=== PATIENT | female | born 1970 | race Caucasian/White ===

== ENCOUNTER → 2018-11-14 | Outpatient (CLI) | payer SELFPAY ==
[~2018-11-14] MED LIST: AMIT10 PO; AZIT250 PO; CHOL10002 PO; CITA20 PO; CYCL10 PO; HYDGUAL120 PO; NAPR550 PO; NAPROSYN PRN; RANI150 PO; RXNAPNA550 PO; TRAM50 PO; Ultram50 MG PO
== END | disposition home or self-care (01) ==
LOC: LAB SHORT 15:00 → LAB EV 15:00
DX: N39.0 Urinary tract infection, site not specified (principal)
CPT/HCPCS: 87086

== ENCOUNTER → 2019-03-15 | Outpatient (CLI) | payer OTHER ==
[2019-03-18 05:08] LABS: CHLAMYDIA TRACHOMATIS, NAA Negative (Negative); NEISSERIA GONORRHOEAE, NAA Negative (Negative)
== END | disposition home or self-care (01) ==
LOC: LAB EV 14:56 → LAB SHORT 14:56
PROVIDERS: Physician Assistant
DX: R10.2 Pelvic and perineal pain (principal)
CPT/HCPCS: 87070; 87077; 87086; 87186; 87205; 87491; 87591

== ENCOUNTER 2019-07-07 08:05 | Day surgery (SDC) | payer OTHER ==
[~2019-07-07] VITALS: Ht 167.6 cm; Wt 82.1 kg
[~2019-07-07 08:05] MED LIST changes: +Aspirin EC81 MG PO; +FERSU300 PO; +Ventolin/Prove6.7 GM INH; +Vitamin D2000 UNIT PO
[2019-07-07] MEDS ORDERED: Nolvadex20 MG PO (08:33)
[2019-07-07] MEDS ORDERED: TURMERIC500 M2 PO (08:34)
[2019-07-07] MEDS ORDERED: GINGER ROOT550 MG PO (08:34)
== END 2019-07-07 12:24 | disposition home or self-care (01) ==
LOC: ORSCSDS 08:05
PROVIDERS: Orthopaedic Surgery
PROC: 0SBC4ZZ Excision of Right Knee Joint, Percutaneous Endoscopic Approach (ICD-10-PCS; principal; 2019-07-07 09:30)
DX: S83.241A Other tear of medial meniscus, current injury, right knee, initial encounter (principal); J45.909 Unspecified asthma, uncomplicated; Z87.891 Personal history of nicotine dependence; Z79.899 Other long term (current) drug therapy; Z79.82 Long term (current) use of aspirin
CPT/HCPCS: J0690; J1885; J2250; J2405; J2704; J3010; J7120

== ENCOUNTER 2019-07-19 14:14 | Emergency (ER) | payer OTHER ==
[~2019-07-19] VITALS: Ht 167.6 cm; Wt 82.0 kg
[~2019-07-19 14:14] MED LIST changes: +GINGER ROOT550 MG PO; +Nolvadex20 MG PO; +TURMERIC500 M2 PO
[2019-07-19] MEDS ORDERED: Ultram50 MG PO (15:55)
== END 2019-07-19 16:14 | disposition home or self-care (01) ==
LOC: ER 14:14
DX: M25.561 Pain in right knee (principal); Z88.6 Allergy status to analgesic agent; Z88.5 Allergy status to narcotic agent; Z79.899 Other long term (current) drug therapy; Z79.82 Long term (current) use of aspirin; Z87.891 Personal history of nicotine dependence; Z98.890 Other specified postprocedural states
CPT/HCPCS: 93971; 99283-25

== ENCOUNTER → 2020-01-03 | Outpatient (CLI) | payer OTHER | END | disposition home or self-care (01) | LOC: LAB SHORT 13:54 → PLD 13:54 | DX: D22.5 Melanocytic nevi of trunk (principal) | CPT/HCPCS: 88305 ==

== ENCOUNTER → 2020-06-26 | Outpatient (CLI) | payer OTHER ==
[~2020-06-26] MED LIST changes: +OXYC5 PO
[2020-06-28 15:09] LABS: CORONAVIRUS (COVID19) CSH-NRL Positive (Negative)
== END ==
LOC: LAB 16:53
PROVIDERS: Physician Assistant
DX: U07.1 COVID-19 (principal)
CPT/HCPCS: U0003

== ENCOUNTER 2020-10-02 08:04 | Day surgery (SDC) | payer OTHER ==
[~2020-10-02] VITALS: Ht 167.6 cm; Wt 88.6 kg
[~2020-10-02 08:04] MED LIST changes: -OXYC5 PO
--- NOTE | 2020-10-02 09:01 | NUR ---
10/02/20 0901 Phyllis Moreno History, Chart, Medications and Allergies reviewed before start of procedure. Patient confirms NPO status and agrees with scheduled surgery. PATIENT DETERMINED TO BE ASA APPROPRIATE FOR PROPOFOL SEDATION PRIOR TO START OF PROCEDURE BY . 3-LEAD EKG REVIEWED WITH PHYSICIAN PRIOR TO START OF PROCEDURE. MONITOR INTACT WITH CONTINUOUS PULSE OXIMETRY AND INTERMITTENT BP.
--- NOTE | 2020-10-02 10:22 | NUR ---
Patient up to Ambulate independently. Gait steady.ABLE TO USE RESTROOM WITH NO ISSUES. Discharge instructions reviewed with patient. Patient verbalizes understanding. Copy given to patient to take home. REVIEWED WITH PT OVER TELEPHONE PER PT REQUEST. Discharged via wheelchair to private car for ride home WITH
[2020-10-30] MEDS ORDERED: OXYC5 PO (12:16)
== END 2020-10-02 10:23 | disposition home or self-care (01) ==
LOC: ORSCMMR 08:04 → ORD 09:00 → ORSCMMR 09:00
PROVIDERS: Internal Medicine Gastroenterology
PROC: 0DBN8ZX Excision of Sigmoid Colon, Via Natural or Artificial Opening Endoscopic, Diagnostic (ICD-10-PCS; principal; 2020-10-02 09:00)
PROC: 0DBP8ZX Excision of Rectum, Via Natural or Artificial Opening Endoscopic, Diagnostic (ICD-10-PCS; principal; 2020-10-02 09:00)
PROC: 0DBM8ZX Excision of Descending Colon, Via Natural or Artificial Opening Endoscopic, Diagnostic (ICD-10-PCS; principal; 2020-10-02 09:00)
DX: K62.5 Hemorrhage of anus and rectum (principal); C20 Malignant neoplasm of rectum; R19.4 Change in bowel habit; K63.5 Polyp of colon; Z80.0 Family history of malignant neoplasm of digestive organs; Z86.010 Personal history of colon polyps; Z85.3 Personal history of malignant neoplasm of breast; Z79.899 Other long term (current) drug therapy; Z79.82 Long term (current) use of aspirin; Z87.891 Personal history of nicotine dependence; K64.8 Other hemorrhoids
CPT/HCPCS: 88305; J2704; J7120

== ENCOUNTER 2020-10-31 09:49 | Day surgery (SDC) | payer OTHER ==
[~2020-10-31] VITALS: Ht 167.6 cm; Wt 88.1 kg
[~2020-10-31 09:49] MED LIST changes: +OXYC5 PO
--- NOTE | 2020-10-31 13:10 | NUR ---
Ambulatory in Day Surgery History, Chart, Medications and Allergies reviewed before start of procedure.Patient confirms NPO status and agrees with scheduled surgery. Pre-Op teaching done. Pt verbalizes understanding. Lungs clear T/O to Auscultation.
--- NOTE | 2020-10-31 14:28 | NUR ---
REPORT GIVEN TO MALLORIE NGUYEN WHO IS ASSUMING CARE OF PT AT THIS TIME.
--- NOTE | 2020-10-31 17:16 | NUR ---
Patient up to Ambulate independently. Gait steady. Discharge instructions reviewed with patient. Patient verbalizes understanding. Copy given to patient to take home. Patient States Post-Procedure ride home has been arranged. Discharged via wheelchair to private car for ride home. DC INSTRUCTIONS REVIEWED WITH SPOUSE, MEDIPORT INFO AND KRUEGER SENT WITH PT AND INSTRUCTED TO BRING TO FIRST CHEMO TX
== END 2020-10-31 22:52 | disposition home or self-care (01) ==
LOC: ORSCSDS 09:49 → ORSCMMR 09:49 → ORSCSDS 11:30
PROVIDERS: Surgery
PROC: 05HM33Z Insertion of Infusion Device into Right Internal Jugular Vein, Percutaneous Approach (ICD-10-PCS; principal; 2020-10-31 14:00)
PROC: B543ZZA Ultrasonography of Right Jugular Veins, Guidance (ICD-10-PCS; principal; 2020-10-31 14:00)
DX: C21.1 Malignant neoplasm of anal canal (principal); D05.11 Intraductal carcinoma in situ of right breast; Z87.891 Personal history of nicotine dependence; Z79.899 Other long term (current) drug therapy; Z79.82 Long term (current) use of aspirin; F32.9 Major depressive disorder, single episode, unspecified
CPT/HCPCS: 77001; A9270; C1788; J0690; J1642; J2250; J3010; J7120

== ENCOUNTER 2020-11-08 10:23 | Day surgery (SDC) | payer OTHER | END 2020-11-08 17:00 | disposition home or self-care (01) | LOC: ATC 10:23 | DX: E86.0 Dehydration (principal); C21.1 Malignant neoplasm of anal canal; Z88.5 Allergy status to narcotic agent; Z87.891 Personal history of nicotine dependence; Z78.9 Other specified health status | CPT/HCPCS: 96361; 96374; J2405; J7030 ==

== ENCOUNTER 2020-11-09 00:22 | Day surgery (SDC) | payer OTHER ==
--- NOTE | 2020-11-09 12:11 | NUR ---
PT DUE TO HAVE CHEMO PUMP D\C, HOWEVER INFUSION NOT COMPLETE. PT TO COME BACK THIS AFTERNOON TO HAVE D/C'D.
== END 2020-11-09 13:51 | disposition home or self-care (01) ==
LOC: ATC 00:22
DX: Z45.2 Encounter for adjustment and management of vascular access device (principal); C21.1 Malignant neoplasm of anal canal; Z88.5 Allergy status to narcotic agent; Z87.891 Personal history of nicotine dependence; Z79.890 Hormone replacement therapy; Z79.82 Long term (current) use of aspirin; Z85.3 Personal history of malignant neoplasm of breast
CPT/HCPCS: J1642; J2405; J7030

== ENCOUNTER 2020-12-07 00:16 | Day surgery (SDC) | payer OTHER | END 2020-12-07 16:35 | disposition home or self-care (01) | LOC: ATC 00:16 | DX: E56.0 Deficiency of vitamin E (principal); C21.1 Malignant neoplasm of anal canal; C50.411 Malignant neoplasm of upper-outer quadrant of right female breast; Z87.891 Personal history of nicotine dependence; Z17.0 Estrogen receptor positive status [ER+]; Z79.818 Long term (current) use of other agents affecting estrogen receptors and estrogen levels | CPT/HCPCS: 96360; J1642; J7030 ==

== ENCOUNTER → 2020-12-09 | Outpatient (CLI) | payer OTHER ==
[2020-12-09 11:07] LABS: BASOPHILS ABSOLUTE AUTO 0.01 K/mm3 (0.00-0.23); BASOPHILS PERCENT AUTO 0 % (0-2); EOSINOPHILS ABSOLUTE AUTO 0.13 K/mm3 (0.00-0.68); EOSINOPHILS PERCENT AUTO 6 % (0-6); Hematocrit 28.6 % (33.0-51.0); Hemoglobin 9.7 g/dL (11.5-16.0); IMMATURE GRAN ABSOLUTE AUTO 0.01 K/mm3 (0.00-0.10); IMMATURE GRAN PERCENT AUTO 0 % (0-1); LYMPHOCYTES ABSOLUTE AUTO 0.39 K/mm3 (0.84-5.20); LYMPHOCYTES PERCENT AUTO 17 % (21-46); MONOCYTES PERCENT AUTO 4 % (4-13); Mean Corpuscular HGB 31.6 pg (26.0-34.0); Mean Corpuscular HGB Conc 33.9 g/dL (31.5-36.5); Mean Corpuscular Volume 93 fL (80-100); Mean Platelet Volume 10.7 fL (9.1-12.4); NEUTROPHILS ABSOLUTE AUTO 1.72 K/mm3 (1.96-9.15); NEUTROPHILS PERCENT AUTO 73 % (41-73); Platelet Count 171 K/mm3 (150-400); RDW Coefficient Variation 13.6 % (11.7-14.2); Red Blood Cell Count 3.07 M/mm3 (3.80-5.20); White Blood Cell Count 2.36 K/mm3 (4.00-11.30)
== END ==
LOC: LAB 10:36 → LAB SHORT 10:36
PROVIDERS: Internal Medicine Hematology & Oncology
DX: C21.1 Malignant neoplasm of anal canal (principal)
CPT/HCPCS: 85025

== ENCOUNTER 2021-02-12 06:23 | Day surgery (SDC) | payer OTHER | END 2021-02-12 08:51 | disposition home or self-care (01) | LOC: ORSCSDS 06:23 | PROC: 0DBP8ZX Excision of Rectum, Via Natural or Artificial Opening Endoscopic, Diagnostic (ICD-10-PCS; principal; 2021-02-12) | PROC: 0JPT0WZ Removal of Totally Implantable Vascular Access Device from Trunk Subcutaneous Tissue and Fascia, Open Approach (ICD-10-PCS; principal; 2021-02-12) | DX: C21.0 Malignant neoplasm of anus, unspecified (principal); Z45.2 Encounter for adjustment and management of vascular access device; I10 Essential (primary) hypertension; F41.9 Anxiety disorder, unspecified; J45.909 Unspecified asthma, uncomplicated; Z79.899 Other long term (current) drug therapy; Z79.82 Long term (current) use of aspirin ==

== ENCOUNTER 2021-11-06 08:22 | Day surgery (SDC) | payer OTHER ==
[~2021-11-06] VITALS: Ht 167.6 cm; Wt 95.3 kg
[~2021-11-06 08:22] MED LIST changes: +ZOLP12.5 PO
--- NOTE | 2021-11-06 09:34 | NUR ---
Ambulatory in Day Surgery. Massimo Paws warming gown applied. History, Chart, Medications and Allergies reviewed before start of procedure.Lungs clear T/O to Auscultation. Patient states colon prep results clear. Patient States Post-Procedure ride home has been arranged. Pre-Op teaching done. Pt verbalizes understanding. THE PATIENT DID AN ENEMA AFTER SHE ARRIVED IN D/S
--- NOTE | 2021-11-06 10:29 | NUR ---
11/06/21 Pedro9 Alexus Mata History, Chart, Medications and Allergies reviewed before start of procedure. Patient confirms NPO status and agrees with scheduled surgery. 3-LEAD EKG REVIEWED WITH PHYSICIAN PRIOR TO START OF PROCEDURE. MONITOR INTACT WITH CONTINUOUS PULSE OXIMETRY AND INTERMITTENT BP. PATIENT DETERMINED TO BE ASA APPROPRIATE FOR PROPOFOL SEDATION PRIOR TO START OF PROCEDURE BY DR. STOUT.
--- NOTE | 2021-11-06 10:53 | NUR ---
Patient up to Ambulate independently. Gait steady. Discharge instructions reviewed with patient. Patient verbalizes understanding. Copy given to patient to take home. Patient States Post-Procedure ride home has been arranged Karsten. Discharged via wheelchair to private car for ride home.
== END 2021-11-06 10:58 | disposition home or self-care (01) ==
LOC: ORSCMMR 08:22 → ORD 09:45 → ORSCMMR 10:58
PROVIDERS: Surgery
PROC: 0DJD8ZZ Inspection of Lower Intestinal Tract, Via Natural or Artificial Opening Endoscopic (ICD-10-PCS; principal; 2021-11-06 09:45)
DX: Z85.048 Personal history of other malignant neoplasm of rectum, rectosigmoid junction, and anus (principal); D64.9 Anemia, unspecified; F41.9 Anxiety disorder, unspecified; F32.A Depression, unspecified; Z87.891 Personal history of nicotine dependence; E66.9 Obesity, unspecified; Z68.33 Body mass index [BMI] 33.0-33.9, adult; Z79.82 Long term (current) use of aspirin; Z79.899 Other long term (current) drug therapy
CPT/HCPCS: A9270; J2704; J7120

== ENCOUNTER 2022-07-21 12:18 | Day surgery (SDC) | payer OTHER ==
[~2022-07-21] VITALS: Ht 167.6 cm; Wt 97.7 kg
== END 2022-07-21 14:11 | disposition home or self-care (01) ==
LOC: ORSCSDS 12:18
PROVIDERS: Surgery
PROC: 0DJD8ZZ Inspection of Lower Intestinal Tract, Via Natural or Artificial Opening Endoscopic (ICD-10-PCS; principal; 2022-07-21 13:30)
DX: Z85.048 Personal history of other malignant neoplasm of rectum, rectosigmoid junction, and anus (principal); F41.8 Other specified anxiety disorders; D64.9 Anemia, unspecified; E66.9 Obesity, unspecified; Z68.33 Body mass index [BMI] 33.0-33.9, adult; Z87.891 Personal history of nicotine dependence; Z79.899 Other long term (current) drug therapy
CPT/HCPCS: J2704; J7120

== ENCOUNTER 2022-12-14 19:58 | Emergency (ER) | payer OTHER ==
[~2022-12-14] VITALS: Ht 152.4 cm; Wt 96.6 kg
[2022-12-14 20:07] VITALS: BP 150/74
[2022-12-14] MEDS ORDERED: MELO7.5 PO (22:45)
[2022-12-14] MEDS ORDERED: BACL10 PO (22:45)
[2022-12-14] MEDS ORDERED: EUTHYROX75 MC1 PO (22:45)
[2022-12-14] MEDS ORDERED: CYCL10 PO (22:50)
== END 2022-12-14 23:05 | disposition home or self-care (01) ==
LOC: ER 19:58
DX: M79.672 Pain in left foot (principal); S99.922A Unspecified injury of left foot, initial encounter; X50.1XXA Overexertion from prolonged static or awkward postures, initial encounter; Z88.5 Allergy status to narcotic agent; Z79.82 Long term (current) use of aspirin; Z79.899 Other long term (current) drug therapy; Z87.891 Personal history of nicotine dependence
CPT/HCPCS: 73620; A9270; J1885

== ENCOUNTER 2023-05-03 13:27 | Day surgery (SDC) | payer OTHER ==
[~2023-05-03] VITALS: Ht 165.1 cm; Wt 93.2 kg
[~2023-05-03 13:27] MED LIST changes: +BACL10 PO; +EUTHYROX75 MC1 PO; +MELO7.5 PO
[2023-05-03 16:44] VITALS: BP 151/77
== END 2023-05-03 17:00 | disposition home or self-care (01) ==
LOC: ORSCSDS 13:27
PROVIDERS: Podiatrist Foot & Ankle Surgery
PROC: 0J8R0ZZ Division of Left Foot Subcutaneous Tissue and Fascia, Open Approach (ICD-10-PCS; principal; 2023-05-03 14:45)
DX: M72.2 Plantar fascial fibromatosis (principal); E03.9 Hypothyroidism, unspecified; Z79.899 Other long term (current) drug therapy; Z68.34 Body mass index [BMI] 34.0-34.9, adult
CPT/HCPCS: A9270; J0690; J1100; J1885; J2405; J2704; J3010; J7120

== ENCOUNTER 2023-08-06 09:23 | Day surgery (SDC) | payer OTHER ==
[~2023-08-06] VITALS: Ht 165.1 cm; Wt 93.2 kg
[2023-08-06] MEDS ORDERED: BACL10 (09:54)
--- NOTE | 2023-08-06 10:03 | NUR ---
08/06/23 1003 Daily Robbins D/T FLEX SIGMOIDOSCOPY, PT USED FLEET ENEMA FOR BOWEL PREP W/ YELLOW CLEAR RESULTS
[2023-08-06 11:15] VITALS: BP 108/64
== END 2023-08-06 11:22 | disposition home or self-care (01) ==
LOC: ORSCSDS 09:23
PROVIDERS: Surgery
PROC: 0DJD8ZZ Inspection of Lower Intestinal Tract, Via Natural or Artificial Opening Endoscopic (ICD-10-PCS; principal; 2023-08-06 10:30)
DX: Z85.048 Personal history of other malignant neoplasm of rectum, rectosigmoid junction, and anus (principal); F32.9 Major depressive disorder, single episode, unspecified; F41.9 Anxiety disorder, unspecified; Z79.82 Long term (current) use of aspirin; Z79.899 Other long term (current) drug therapy
CPT/HCPCS: J2704; J7120

== ENCOUNTER → 2024-07-17 | Outpatient (CLI) | payer OTHER ==
[~2024-07-17] MED LIST changes: +BACL10
== END | disposition home or self-care (01) ==
LOC: LAB 15:11 → LAB SHORT 15:11
DX: N39.0 Urinary tract infection, site not specified (principal)
CPT/HCPCS: 87077; 87086; 87186

== ENCOUNTER → 2024-08-22 | Outpatient (CLI) | payer OTHER | END | disposition home or self-care (01) | LOC: LAB SHORT 13:09 | DX: R82.998 Other abnormal findings in urine (principal) | CPT/HCPCS: 87086 ==